=== PATIENT | male | born 1970 ===

== ENCOUNTER 2017-06-09 14:05 | Day surgery (SDC) | payer MEDICAID ==
[2017-06-05 09:52] VITALS: BMI 38.9
--- NOTE | 2017-06-09 14:29 | CP.SDSHP ---
Same Day Surgery H & P - History Proposed Procedure: Right Lisfranc fracture ORIF Pre-Op Diagnosis: Right Lisfranc fracture - Previous Medical/Surgical History Endocrine/Metabolic: Obesity Misc: Other (Gastritis) Pain: 6.Severe Pain Comments: ETOH abuse Previous Surgical History: none - Allergies Allergies: Allergies No Known Allergies Allergy (Verified 06/05/17 09:52) - Current Medications Current Medications: See med rec - Physical Exam General Appearance: NAD Mental Status: Alert & Oriented x3 Neuro: WNL Heart: WNL Lungs: WNL GI: WNL - {Optional Preform as Required} Integument: Other (Ecchymosis noted to dorsoplantar aspect of foot) Ortho: Other (Pain on palpation dorsal lisfranc) - Impression Impression: Pt was seen and examined in [facility]. Pt NPO status was confirmed. All Pre-op testing and clearance was in the chart. Pt has exhausted all conservative treatment at this time and is opting for surgical intervention. Pt was explained procedure and post-operative course. All pt's questions were answered to satisfaction. No guarantees were made. Pt understands all risks, benefits and complications of procedure. Pt will follow-up with Dr. Hicks Pt. Evaluated Today:Candidate for Anesthesia & Procedure: Yes - Date & Time Date: 06/09/17 Time: 15:00 Short Stay Discharge - Short Stay Discharge Admitting Diagnosis/Reason for Visit: S92.321S / S93.324S / Disposition: HOME/ ROUTINE Referrals: Trent Velasquez PA [Primary Care Provider] - Follow-up: Follow up with Dr. Hicks in office next week 06/16/17 Progress Note/Discharge Note with Instructions: Patient in good condition for discharge home. Pt to resume medications per medical reconciliation. Resume regular diet. Please keep dressing clean, dry, & intact to surgical site, use plastic bag over bandage for showering, wear post op shoe at all times when ambulating, call clinic if you see signs of infection (redness, swelling, malodor), please make an appointment to see Dr. Hicks in office next Thursday06/16/17 for post-op check.
--- NOTE | 2017-06-09 14:29 | CP.PCM.PN ---
Subjective - Date & Time of Evaluation Date of Evaluation: 06/09/17 Time of Evaluation: 14:29 - Subjective Subjective: 46 year old male PMHx gastritis, obesity seen in [facility] for pre-operative evaluation for right lisfranc fracture ORIF by Dr. Hicks today. Patient states last week Thursday while he was walking down the stairs he stepped wrong and put all of his weight on his right foot, and felt a "pop." Currently, patient rates pain as 6/10 on the VAS scale. Admits to taking Tramadol for alleviation of symptoms. Patient offers no other complaints. NPO confirmed. Denies N/V/F/D/C/SOB. Objective - Constitutional Appears: Well, Non-toxic, No Acute Distress - Extremities Exam Additional comments: RLE focused physical exam: VASC: DP and PT pulses palpable. CFT <3 seconds to all digits x5. Temperature gradient cool to cool. Nonpitting edema noted to entire foot. NEURO: Light touch and protective sensation intact. DERM: Ecchymosis noted to medial and lateral aspects of calcaneus, and medially along 1st metatarsal. No open lesions noted. ORTHO: Pain on palpation along dorsum of 1st and 2nd metatarsal bases. (+)piano hernandez test. BIOMECH: Patient present NWB to RLE with the assistance of crutches. Patient has decreased ankle joint ROM. Ankle joint dorsiflexion to left ankle is < 10 degrees with knee flexed and extended with pain noted at 1st/2nd met bases. Negative anterior drawer test. Muscle strength is 5/5 for all dorsiflexors, plantarfexors, inverters, and everters with pain upon active inversion and eversion. STJ ROM is full with 20 degrees inversion and 10 degrees eversion. RCSP/NCSP deferred secondary to chief complaint. ROM of MTJ is normal with pain along 1st and 2nd met bases. The forefoot is perpendicular to the rearfoot. First ray ROM is normal. 1st MPJ ROM is normal 65 degrees wihtout pain or crepitus. Rectus hallux noted. - Neurological Exam Neurological Exam: Alert, Awake, Oriented x3 - Psychiatric Exam Psychiatric exam: Normal Affect, Normal Mood Assessment and Plan - Assessment and Plan (Free Text) Assessment: 46M PMHx gastritis with right Lisfranc fracture Plan: Pt was seen and examined in [facility] Pt NPO status was confirmed All Pre-op testing was in the chart Pt has exhausted all conservative treatment at this time and is opting for surgical intervention Pt was explained procedure and post-operative course All pt's questions were answered to satisfaction No guarantees were made Pt understands all risks, benefits and complications of procedure Pt will follow-up with Dr. Hicks
[2017-06-09] MEDS ORDERED: Lidocaine 1% Inj (20ml) IJ ONE (14:31)
[2017-06-09] MEDS ORDERED: Bupivacaine 0.5% Inj(30mL) IJ ONE (14:31)
[2017-06-09] MEDS ORDERED: ceFAZolin IV 2 gm in Dextrose 2 GM/50 ML BAG IVPB ONE (14:31)
[2017-06-09 14:50] LABS: HEMOGLOBIN 15.5 g/dL (12.0-18.0); MEAN CELL VOLUME 85.1 fl (80.0-94.0); MEAN CORPUSCULAR HEMOGLOBIN 28.8 pg (27.0-31.0); MEAN CORPUSCULAR HGB CONC 33.9 g/dL (33.0-37.0); RBC 5.36 Mil/uL (4.40-5.90); RED CELL DISTRIBUTION WIDTH 13.8 % (11.5-14.5); WHITE BLOOD COUNT 9.9 K/uL (4.8-10.8)
[2017-06-09] MEDS ORDERED: Lidocaine 1% Inj (20ml) ONE (14:59)
[2017-06-09] MEDS ORDERED: Bupivacaine 0.5% Inj(30mL) ONE (14:59)
[2017-06-09] MEDS ORDERED: Sodium Chloride 0.9% 1,000 ML IV SCH (15:00)
[2017-06-09 15:08] LABS: BLOOD UREA NITROGEN 18 mg/dl (9-20); CALCIUM 9.7 mg/dL (8.4-10.2); GFR AFRICAN-AMERICAN > 60; GFR NON-AFRICAN AMERICAN > 60
[2017-06-09 15:12] VITALS: RESP 18; O2SAT 97
--- NOTE | 2017-06-09 15:12 | CARD ---
APPROVED REPORT EKG Measurement Heart [id number] <Conclusion> Sinus tachycardia Otherwise normal ECG
[2017-06-09] MEDS ORDERED: Bupivacaine HCl 0.5% PF (10 ml) Inj ONE (16:08)
[2017-06-09] MEDS ORDERED: Propofol 10 mg/ml Inj (20 ML) ONE ×2 (16:12→16:39)
[2017-06-09] MEDS ORDERED: Succinylcholine 200 mg/10 ml Inj IV ONE (16:12)
[2017-06-09] MEDS ORDERED: Rocuronium 10 mg/ml (5 ml) ONE (16:12)
[2017-06-09] MEDS ORDERED: Lactated Ringer's 1,000 ML IV ONE ×2 (16:30→18:48)
[2017-06-09] MEDS ORDERED: Midazolam 2 MG/2 ML VIAL ONE (16:32)
[2017-06-09] MEDS ORDERED: Dexamethasone 4 mg/1 ml ONE (17:11)
[2017-06-09] MEDS ORDERED: Neostigmine 1:1000 (1 mg/ml) Inj ONE (17:24)
[2017-06-09] MEDS ORDERED: Lactated Ringer's 500 ML IV ONE ×2 (17:30→17:58)
--- NOTE | 2017-06-09 17:57 | PCM.SURG1 ---
Surgeon's Initial Post Op Note - Surgeon's Notes Surgeon: Dr. Hicks Specialty Person: Juani Bruce PGY3, Eleazar Chirinos PGY3 Type of Anesthesia: General Endo, Block Regional (Popliteal block) Anesthesia Administered By: Dr. Winkler Pre-Operative Diagnosis: Right foot lisfranc fracture Operative Findings: See operative report. materials: 3.5 x 42mm (x2) Arthrex headless screw, 4-0 prolene Post-Operative Diagnosis: Same Operation Performed: Right foot Lisfranc fracture closed reduction and percutaneous fixation Specimen/Specimens Removed: None Estimated Blood Loss: EBL {In ML}: 1 Blood Products Given: N/A Drains Used: No Drains Post-Op Condition: Good Date of Surgery/Procedure: 06/09/17 Time of Surgery/Procedure: 17:57
[2017-06-09] MEDS ORDERED: Oxycodone/Acetaminophen 5/325 mg Tab PO PRN ×2 (18:00)
[2017-06-09] MEDS ORDERED: HYDROmorphone 0.5 mg/0.5 ml ISec IVP PRN (18:02)
[2017-06-09] MEDS ORDERED: Lactated Ringer's 1,000 ML IV SCH (18:15)
--- NOTE | 2017-06-09 18:15 | PCM.ANESB7 ---
Adductor Canal Block - Adductor Canal Block Date of Procedure: 06/09/17 Anesthiologist: Peterson Pre-Procedure Diagnosis: Richt Lis Franc fracture Post-Procedure Diagnosis: Same Procedure Performed: Adductor Canal Block Right - Procedure Adductor Canal Block: The procedure was explained to the patient that it is for the post-operative pain management. Consent was obtained after a thorough discussion with the patient regarding the benefits and possible complications of local anesthetic adductor canal block of the femoral nerve. Standard monitors, as defined by the ASA, were applied to the patient. Time-out was held with the circulating nurse to confirm the appropriate block.Under general anesthesia, the patient was placed in supine position with and the operative leg was flexed slightly at the knee and externally rotated as needed, and was kept anatomically stable. The mid -thigh of the ___right lower extremity was exposed. The ultrasound transducer was then applied transversely along the medial aspect, about midway down the thigh and the femoral artery and vein were identified in appropriate relation with the sartorius muscle. At this time, the femoral nerve was visualized lateral to the femoral artery within the canal. After thorough identification, this area area was prepped with Chloroprep solution. At this point, a #22 gauge Stimuplex 4-inch needle was inserted in-plane in a [id number] orientation, and advanced toward the femoral nerve. Advancement was performed carefully under direct ultrasound visualization. Nerve stimulator was used and appropriate muscle twitch was obtained at current of __0.4___MA. After negative aspiration, __2___cc of __0.5___% __bupivicaine with 1:200,000 epinephrine was injected and this was followed with __8____ cc of __0.5 % ____bupivicaine with 1:200,000 epinephrine ____. Under ultrasound guidance the local anesthetics were observed spreading around the femoral nerve. The needle was removed intact. The patient had stable vital signs, was conscious and in no apparent distress. The patient tolerated the femoral nerve block well with stable vital signs and was prepared for subsequent surgery
--- NOTE | 2017-06-09 18:22 | PCM.ANESB2 ---
Popliteal Nerve Block - Popliteal Nerve Block Date of Procedure: 06/09/17 Anesthesiologist: Peterson Pre-Procedure Diagnosis: Right Lis Franc fracture Post-Procedure Diagnosis: Same Procedure Performed: Popliteal Nerve Block Right - Procedure Popliteal Nerve Block: This procedure was explained to the patient that it is for post-operative pain management. Consent was obtained after a thorough discussion with the patient regarding the benefits and possible complications of local anesthetic block of the sciatic nerve at the popliteal level. The patient was brought to the operating room and standard monitors are applied. Time-out was held with the circulating nurse to confirm the correct surgery and the appropriate block. Under general anesthesia, patient's operative leg was gently raised and supported and the groove in between the biceps femoris and vastus lateralis muscles was carefully palpated. The skin approximately 8cm above the popliteal crease was then marked. The ultrasound transducer was then applied to the posterior thigh approximately 8cm above the popliteal crease in the transverse plane and the sciatic nerve before its division was visualized lateral to the popliteal artery and in between the bicep femoris and semimembranosus/ semitendinosus muscles. After identification, the lateral portion of the thigh was prepped with Chloraprep. At this point, a # 21 gauge Stimuplex insulated 4 inch needle was inserted into pre-marked area and advanced in a perpendicular direction. The needle was inserted above the ultrasound transducer in-plane towards the sciatic nerve in a [id number] direction. Needle advancement was performed carefully under direct ultrasound visualization. Nerve stimulator was used and dorsiflexion of the __right___ foot was elicited at a current of __0.4___ MA. After repeated negative aspiration, __2___cc of __0.5___ % __bupivicaine with 1:200,000 epinephrine was injected and this was flowed with __23____ cc of __ 0.5____% __bupivicaine with 1:200,000 epinephrine . Under ultrasound guidance the local anesthetics were observed surrounding sciatic nerve . The needle was removed intact. The patient tolerated the popliteal nerve block well with stable vital signs and was subsequently prepared for the surgery.
[2017-06-09 19:53] VITALS: BP 132/89; PULSE 102; TEMP 98.2
--- NOTE | 2017-06-10 10:17 | RAD ---
PROCEDURE: Intraoperative Fluoroscopy. HISTORY: FLUOROSCOPY FINDINGS: Fluoroscopic assistance was provided. Please refer to the operative report from [facility].
--- NOTE | 2017-06-11 07:42 | RAD ---
PROCEDURE: Right Foot Radiographs. HISTORY: s/p right foot lisfranc fx sx COMPARISON: None. FINDINGS: BONES: Partial cast obscures fine bony and soft-tissue detail. Patient status post arthrodesis at the midfoot including once acute transfixing the medial middle and lateral cuneiform bones at as well as possibly the medial portion of the cuboid bone and a 2nd screw transfixing the medial cuneiform bone with the 2nd and 3rd metatarsal bases. No acute cortical fracture is identified. JOINTS: As above. SOFT TISSUES: Normal. OTHER FINDINGS: None. IMPRESSION: Status post midfoot arthrodesis to apparently treat Lisfranc fracture. Please see discussion above.
--- NOTE | 2017-06-15 17:54 | PCM.OP ---
Operative Report - Operative Report Date of Surgery/Procedure: 06/09/17 Time of Surgery/Procedure: 17:00 Surgeon: Evan Francisco DPM Metal Patternmaker Apprentice: Claudio Bruce DPM PGY-3; Martín Chirinos DPM PGY-3 Anesthesia/Sedation: General LMA with popliteal block Pre-Operative Diagnosis: Right foot- displaced Lisfranc fracture Post-Operative Diagnosis: Same as above Indication for Surgery: The patient is a 46 year-old male who sustained Right foot Lisfranc fracture approximately one week ago while walking down the stairs. He now requires internal fixation of the fracture to stabilize his tarsometatarsal joints. The patient signed the consent after careful explanation of risks, benefits, complication and alternatives for surgical procedure. No guarantees were given nor implied. 2g of IV Ancef were given to the pt prior to the procedure. The patients NPO status was confirmed prior to taking pt to the OR. Operative Findings: See below Procedure/Operation Description: Preparation: The patient was brought to the operating room and placed on the operating room table in supine position. Time- out was performed for identification of the correct patient and the correct procedure. A well-padded pneumatic thigh tourniquet was applied to the patient s Right thigh. After induction of general anesthesia, the Right foot was prepped and draped in usual sterile manner. Esmarch was utilized to exsanguinate the patient's Right foot. Pneumatic thigh tourniquet was then inflated to 350 mmHg and procedure began. Procedure:Attention was now directed to the Right midfoot. Using intraoperative fluoroscopy, AP and Lateral x-rays were taken and the fracture was visualized and confirmed with increased diastasis between the 1st and 2nd metatarsal bases and displacement at the 2nd tarsometatarsal joint. Using intraoperative fluoroscopy and a freer elevator for reference, two lines were marked for screw insertion. The first line was mapped and drawn from the medial aspect of the medial cuneiform to the medial aspect of the base of the second metatarsal. The second line was mapped and drawn from the medial aspect of the medial cuneiform to the lateral aspect of the intermediate cuneiform. Using these two lines as guidance, a K-wire from the Arthrex compression FT screw set was now utilized to temporarily fixate the intercuneiform joint between the medial and intermediate cuneiforms. The K-wire was driven from medial to lateral and the appropriate alignment and depth of insertion was confirmed via fluoroscopy. Next, a large bone reduction clamp was now utilized to help reduce the Lisfranc joint back into normal anatomic alignment. Under fluoroscopy, an AP x-ray was taken and it was confirmed that the increased diastasis between the 1st and 2nd metatarsal bases had disappeared and the 2nd tarsometatarsal joint was also in proper alignment. This confirmed adequate reduction of the Lisfranc joint. A second K-wire was now driven from the medial aspect of the medial cuneiform and through the 2nd metatarsal base. The appropriate alignment and depth of K-wire insertion was appreciated under fluoroscopy. Two stab incisions were created near he K-wire insertion sites. Both incisions were bluntly dissected down to bone using a curved hemostat. At this time, the cannulated depth gauge device was now used to measure the initial guidewire length for both inserted K-wires. Next, the Arthrex 3.2mm cannulated drill bit was used over the intercuneiform guidewire. This was drilled 2/3rds of the length of the inserted K-wire. Next, a 4.0 x42mm headless screw was now inserted over the intercuneiform guide wire. The screw was tightened using two-finger tightness. The intercuneiform K-wire was now removed. The same process was repeated for the second K-wire traversing the medial cuneiform and second metatarsal base and a 4.0x50mm headless screw was then inserted down to 2-finger tightness. The final K-wire was now removed. Upon insertion of this homerun screw, the previously applied bone reduction clamp was also removed. Final AP and lateral x-rays were taken and successful anatomic reduction of the tarsometatarsal complex was appreciated with excellent alignment of the headless screws. The stab incision sites were now thoroughly irrigated with a copious amount of sterile normal saline. The incision sites were closed using 4-0 prolene. The incision sites were dressed with xeroform, 4x4 gauze and kerlix. A well-padded posterior splint was now applied to the Right lower extremity while ensuring to maintain the ankle at neutral dorsiflexion. The attending, Dr. Francisco, was present throughout the entire case. Estimated Blood Loss: 1cc Complications: None Discharge & Condition: Postoperative Condition: The patient tolerated the anesthesia and procedure well and was escorted to the recovery room with vital signs stable and neurovascular status intact to the Right foot. The patient is to remain non-weightbearing to the Right foot with crutches. He is to follow up with Dr. Francisco at his office on an outpatient basis.
== END 2017-06-09 20:10 | disposition home or self-care (01) ==
LOC: H.OPSURG 14:05
PROVIDERS: ATTEND Podiatrist Foot & Ankle Surgery
DX: S92.311A Displaced fracture of first metatarsal bone, right foot, initial encounter for closed fracture (principal); G47.33 Obstructive sleep apnea (adult) (pediatric); I10 Essential (primary) hypertension; E66.9 Obesity, unspecified; S92.321A Displaced fracture of second metatarsal bone, right foot, initial encounter for closed fracture; W19.XXXA Unspecified fall, initial encounter
CPT/HCPCS: 28475; 36415; 73630; 76000; 80048; 85027; 93005; J0171; J0330; J0690; J1100; J1885; J2001; J2250; J2405; J2704; J2710; J2765; J3010; J7120